=== PATIENT | male | born 1960 | race Caucasian/White ===

== ENCOUNTER → 2017-09-18 | Outpatient (CLI) | payer MEDICARE ==
[2017-09-18 11:19] LABS: Blood Urea Nitrogen 14 mg/dL (9-20)
--- NOTE | 2017-09-18 15:23 | NM ---
EXAMINATION TYPE: NM bone scan whole body DATE OF EXAM: 09/18/2017 COMPARISON: CT pelvis same date HISTORY: Follow-up staging prostate cancer, C 61 Delayed whole-body scanning was performed following the injection of 25.4 mCi Tc 99m MDP. Images acq uired 3 hours post injection. FINDINGS: There is some increased uptake at the costovertebral angles of approximately T8 bilaterally which may be due to costovertebral angle osteoarthritic changes bilaterally. Uptake within the knees, feet, carvalho nds, shoulders, sternoclavicular joints is likely degenerative. Uptake in the maxillary and mandibula r level likely due to periodontal disease. Soft tissue uptake is normal. IMPRESSION: No convincing evidence of metastatic disease. Probable degenerative changes as described.
--- NOTE | 2017-09-18 15:35 | CT ---
EXAMINATION TYPE: CT pelvis w con DATE OF EXAM: 09/18/2017 COMPARISON: NONE INDICATION: Prostate CA staging DLP: 1873.60 mGycm, Automated exposure control for dose reduction was used. CONTRAST: 100 mL of Omnipaque 300. Study performed with Oral Contrast TECHNIQUE: Axial images were obtained from above the diaphragm to the pubic rami in the axial plane a t 5 mm thick sections. Reconstructed images are reviewed on the computer in the coronal plane. FINDINGS: Note is made of a 0.4 cm nonobstructing renal stone at the inferior pole of the left kidney on the coronal plane images. An additional nonobstructing renal stone within the right kidney midpor tion measuring 0.[address] PELVIS: No suspicious lower abdominal or intrapelvic adenopathy is evident. Contrast-filled loops of bowel appear unremarkable. There are some loops of bowel with incomplete dis tention. There is thickening of the sigmoid colon. This could be related to incomplete distention. So me increased mesenteric stranding is present superior to the mid sigmoid colon, series 7 image 24. So me mild diverticulitis is not excluded. Consider additional evaluation and clinical correlation. Appendix: Not identified Urinary bladder: Contrast filled urinary bladder with urine contrast level is evident. Genitourinary structures: Prostate has slight prominence. Seminal vesicles appear normal. Urinary cheo dder adjacent appears normal Osseous structures: No suspicious lytic or sclerotic lesions. Degenerative disc changes are present L 5-S1. Mild sacroiliac joint degenerative changes are present. IMPRESSIONS: 1. No suspicious changes to suggest metastatic prostate disease. 2. Nonobstructing bilateral renal stones 3. Mild diverticulitis may be present within the sigmoid colon region. Conical correlation and Follow -up is recommended. Underlying mass cannot be excluded. This could be related to incomplete distentio n and wall thickening.
== END | disposition home or self-care (01) ==
LOC: RADNMMAIN 10:34 → EEVIPCON 11:30
PROVIDERS: ATTEND Urology
DX: C61 Malignant neoplasm of prostate (principal)
CPT/HCPCS: 82565; 84520; 72193; 36415; 78306; A9503; Q9967

== ENCOUNTER → 2017-10-21 | Outpatient (CLI) | payer MEDICARE ==
[2017-10-21 10:53] LABS: Basophils # (A) 0.1 k/uL (0-0.2); Basophils % (A) 1 %; Eosinophils # (A) 0.3 k/uL (0-0.7); Eosinophils % (A) 6 %; HCT 46.8 % (39.0-53.0); HGB 15.7 gm/dL (13.0-17.5); Lymphocytes # (A) 1.7 k/uL (1.0-4.8); Lymphocytes % (A) 30 %; MCH 30.1 pg (25.0-35.0); MCHC 33.6 g/dL (31.0-37.0); MCV 89.6 fL (80.0-100.0); Mean Platelet Volume 7.3; Monocytes # (A) 0.4 k/uL (0-1.0); Monocytes % (A) 7 %; Neutrophils # (A) 2.9 k/uL (1.3-7.7); Neutrophils % (A) 53 %; Platelet Count 205 k/uL (150-450); RBC 5.22 m/uL (4.30-5.90); RDW 12.6 % (11.5-15.5); WBC 5.5 k/uL (3.8-10.6)
[2017-10-21 11:10] LABS: Anion Gap 10 mmol/L; Blood Urea Nitrogen 14 mg/dL (9-20); Carbon Dioxide 28 mmol/L (22-30); Chloride 103 mmol/L (98-107); Glucose 73 mg/dL (74-99); Sodium 141 mmol/L (137-145)
== END | disposition home or self-care (01) ==
LOC: LABPAT 10:11
PROVIDERS: ATTEND Urology
DX: Z01.818 Encounter for other preprocedural examination (principal); I10 Essential (primary) hypertension; R94.31 Abnormal electrocardiogram [ECG] [EKG]; E03.9 Hypothyroidism, unspecified; C61 Malignant neoplasm of prostate; Z01.812 Encounter for preprocedural laboratory examination
CPT/HCPCS: 80048; 85025; 86850; 86900; 86901; 93005

== ENCOUNTER 2017-10-28 11:01 | Inpatient (IN) | payer MEDICARE ==
[2017-10-19 13:19] VITALS: BMI 34.7
[~2017-10-28 11:01] MED LIST: DEXAMETHASONE SOD PHOSPHATE 10 MG/ML 1 ML VIAL IV ONE; HEPARIN SODIUM,PORCINE 5,000 UNIT/ML 1 ML VIAL SQ ONE; MORPHINE SULFATE 4 MG/ML SYRINGE IV PRN; ONDANSETRON 4 MG/2 ML VIAL IVP ONE
[2017-10-28] MEDS: LACTATED RINGERS 1,000 ML IV SCH (12:26)
[2017-10-28] MEDS ORDERED: LIDOCAINE 1% 20 ML VIAL (10MG/ML) FOR IV START INTRADERMA ONE (12:30)
[2017-10-28] MEDS ORDERED: LIDOCAINE 1% INJ 10MG/ML (20 ML MDV) ONE (12:41)
[2017-10-28] MEDS: ceFAZolin IN SWFI 2 GM/20 ML SYRINGE IVP ONE ×2 (12:41→13:32)
[2017-10-28] MEDS ORDERED: NEOSTIGMINE 1 MG/ML 10 ML VIAL ONE (12:41)
[2017-10-28] MEDS ORDERED: fentaNYL (PF) 50 MCG/ML 2 ML AMP ONE (12:41)
[2017-10-28] MEDS ORDERED: VECURONIUM 10 MG VIAL IV ONE (12:41)
[2017-10-28] MEDS ORDERED: GLYCOPYRROLATE 0.2 MG/ML 2 ML VIAL ONE (12:41)
[2017-10-28] MEDS ORDERED: PROPOFOL 10 MG/ML 20 ML VIAL IV ONE (12:41)
[2017-10-28] MEDS ORDERED: SUCCINYLCHOLINE CHLORIDE VIAL 200 MG/10 ML VIAL IV ONE (12:41)
[2017-10-28] MEDS ORDERED: BUPIVACAINE (PF) 0.25% 30 ML VIAL SQ ONE ×2 (13:31)
[2017-10-28] MEDS ORDERED: LACTATED RINGERS 1,000 ML IV ONE (16:13)
--- NOTE | 2017-10-28 17:13 | P.OP ---
Date of Procedure: 10/28/17 Preoperative Diagnosis: Adenocarcinoma of the Prostate, Clinical Stage [id number] Postoperative Diagnosis: Same Procedure(s) Performed: Robotic-assisted Laparoscopic Prostatectomy (RALP) with Bilateral Pelvic Lymphadenectomy Anesthesia: RONNELL Surgeon: Ravinder Lee Online Marketing Director #1: Sandip Burroughs Estimated Blood Loss (ml): 500 IV fluids (ml): 1,750 Condition: stable Disposition: PACU Indications for Procedure: The patient is a 56-year-old male with a recent PSA level of 8.098, up from 1.75 in 2015. ERIN revealed left-sided firmness, and biopsies have shown adenocarcinoma in 5 of 12 biopsies ([id number]). The Mellissa score was 8-9 in 4 of these biopsies. In view of this, he underwent a CT scan and bone scan which showed no metastases. This was discussed with the patient and his , though communication is difficult. He was thus given a book (Murphy Vazquez's Guide to Surviving Prostate Cancer) for educational purposes. He has elected to undergo an RALP with PLND. The left neurovascular bundle will be widely excised , and he understands the likelihood of postoperative erectile dysfunction. He also understands the possible need for adjuvant therapy. Operative Findings: Inflammation surrounding the sigmoid colon, suggestive of diverticulitis. No evidence of extraprostatic disease. Description of Procedure: The patient was taken in the operating room and placed in the dorsal lithotomy position, with his legs supported in Pérez stirrups. He was carefully positioned on a beanbag for stability. The abdomen and external genitalia were prepped and draped sterilely. A Herbert catheter was inserted. The Veress needle was passed through the anterior abdominal wall immediately cephalad to the umbilicus, and insufflation was performed to a pressure of 20 mm Hg. Once insufflation was performed, the Veress needle was removed and a supraumbilical incision was made, through which a 12 mm camera port was placed. Under camera guidance, 3 8 mm robotic ports were placed, 2 on the left and one on the right. An additional 12 mm port was placed on the right lateral side for use as an legal executive assistant port. A 5 mm port was placed to the right of the camera port for suction. The patient was placed in Trendelenburg position, and docking was then performed to the da Ana system utilizing a 4-arm approach. The abdomen was examined. The sigmoid colon was mobilized out of the pelvis. This required extensive dissection, as there was significant inflammation surrounding the sigmoid colon. The peritoneum was incised lateral to the medial umbilical ligaments bilaterally, exposing the pubis. The peritoneum was then incised across the midline, allowing the bladder flap to be taken down. The endopelvic fascia was opened bilaterally, and muscular attachments from the urogenital diaphragm were swept away from the prostate. Bilateral pelvic lymphadenectomies were performed in the standard fashion. The peritoneal incisions were extended in a cephalad direction, and the vas deferens were divided bilaterally. Margins of dissection were the bifurcation of the iliac vessels proximally, the circumflex iliac vein distally, the external iliac artery laterally, and the obturator nerve medially. A combination of sharp and blunt dissection was used. Care was taken to avoid any neurovascular injury, and the use of monopolar electrocautery was avoided immediately adjacent to neurovascular structures. The lymphatic package was clipped distally. No enlarged lymph nodes were encountered. There were no complications. The vesical neck was incised transversely, down to the lumen. The Herbert catheter was brought out through the anterior vesical neck incision and was used for traction. The posterior aspect of the vesical neck was incised, such that the full-thickness of the vesical neck was divided. The anterior layer of the Denonvilliers fascia was incised, exposing the vas deferens. Each were isolated and divided. Next, each of the seminal vesicles were dissected away from adjacent tissues, and vascular attachments were cauterized and divided. The posterior leaf of Denonvilliers fascia was incised transversely, allowing entry into the plane between the prostate and rectum. With lateral spreading, this plane was developed down to the apex. This exposed the lateral vascular pedicles bilaterally. These were clipped and divided in an antegrade fashion, down to the apex. The use of electrocautery was avoided on the right to prevent thermal damage to the nerves. On the right side, the plane of dissection was close to the prostate for partial sparing of the neurovascular bundle. On the left side, wide excision of the vascular pedicle was performed. The remaining apical attachments were swept away from the prostate. The dorsal venous complex was incised, as well as periurethral tissue. Significant bleeding occurred from the dorsal venous complex, and this was sutured using a V lock suture in a running fashion. At this point, only the urethra remained intact. This was transected immediately distal to the prostatic apex using cold scissors. The specimen was placed within a specimen bag. A V-Loc suture was then used to place the Woody stitch, incorporating the rhabdosphincter and the edge of Denonvilliers fascia. This allowed the bladder to be taken down to the urethra, leaving the vesical neck immediately adjacent to the urethra. The vesicourethral anastomosis was then performed using a V- Loc suture in a running fashion. After completing the anastomosis, an 18- Chinese Herbert catheter was placed and approximately 150 mL of 0.9 normal saline were instilled into the bladder. No extravasation of irrigant from the vesicourethral anastomosis was noted. A small amount of oozing was noted from the vascular pedicles, so Surgicel was placed bilaterally. The patient was returned to the supine position. Undocking was performed, and the specimen bag sutures were passed through the camera port. After removing all the ports and allowing all of the CO2 to be released from the peritoneal cavity, the camera port incision was enlarged to allow removal of the surgical specimen. The fascia of this incision was then closed using 0 Vicryl suture in an interrupted [id number] fashion. Each of the skin incisions were then closed using 4-0 Monocryl suture in a subcuticular fashion. Marcaine was injected at each of the incision sites. Dermabond was applied to each incision. The Herbert catheter was connected to gravity drainage. All sponge and needle counts were correct. The patient tolerated the procedure well was taken to the recovery room in stable condition.
[2017-10-28] MEDS ORDERED: KETOROLAC 30 MG/ML 1 ML VIAL IVP PRN (17:14)
[2017-10-28] MEDS ORDERED: ACETAMINOPHEN TAB 325 MG TAB PO PRN (17:14)
[2017-10-28] MEDS ORDERED: ONDANSETRON 4 MG/2 ML VIAL IVP PRN (17:14)
[2017-10-28] MEDS: DEXTROSE 5%-0.45% NACL 1,000 ML IV SCH (18:28)
[2017-10-28] MEDS: HEPARIN SODIUM,PORCINE 5,000 UNIT/ML 1 ML VIAL SQ SCH (19:54)
[2017-10-28] MEDS: sulfaSALAzine 500 MG TAB PO SCH (19:58)
[2017-10-28] MEDS: MORPHINE SULFATE/PF 10MG/10ML VL IVP PRN (19:58)
[2017-10-29] MEDS: DEXTROSE 5%-0.45% NACL 1,000 ML IV SCH ×3 (06:04→17:21)
[2017-10-29] MEDS ORDERED: LEVOTHYROXINE 75 MCG TAB PO SCH (06:30)
[2017-10-29] MEDS: MORPHINE SULFATE/PF 10MG/10ML VL IVP PRN (08:01)
[2017-10-29] MEDS: sulfaSALAzine 500 MG TAB PO SCH (09:47)
[2017-10-29] MEDS: HEPARIN SODIUM,PORCINE 5,000 UNIT/ML 1 ML VIAL SQ SCH (09:47)
[2017-10-29] MEDS ORDERED: HYDROmorphone 4 MG TABLET PO PRN (11:16)
[2017-10-29 14:41] VITALS: BP 133/63; PULSE 100; RESP 20; TEMP 98.3
[2017-10-29] MEDS ORDERED: HYDROcodone/APAP 5-325MG 1 EACH TAB PO STA (17:14)
--- NOTE | 2017-10-29 18:50 | P.DS ---
Providers Date of admission: 10/28/17 11:01 Expected date of discharge: 10/29/17 Attending physician: Ravinder Lee Primary care physician: Stated None Hospital Course: On the day of admission, the patient underwent a robotic-assisted laparoscopic prostatectomy (RALP) with bilateral pelvic lymphadenectomy. The procedure was made more difficult by scarring/inflammation surrounding the sigmoid colon. Blood loss was somewhat higher than anticipated, but there were no intraoperative complications. The perioperative course was unremarkable. On the first postoperative day, the patient was able to tolerate diet and ambulating well in the arellano. The incisions were clean and dry. He was afebrile with stable vital signs. The Herbert catheter drained clear yellow urine. He was thus discharged home with the Herbert catheter. Procedures: RALP with bilateral pelvic lymphadenectomy on 10/28/2017. Patient Condition at Discharge: Good Plan - Discharge Summary Discharge Rx Participant: Yes New Discharge Prescriptions: New Ciprofloxacin HCl [Cipro] 250 mg PO Q12HR #6 tablet Hydrocodone/Acetaminophen [[place] 5-325] 1 - 2 each PO Q4HR PRN #20 tab PRN Reason: Pain No Action Vitamin E (Dl,Tocopheryl Acet) [Vitamin E] 400 unit PO DAILY Multivitamins, Thera [Multivitamin (formulary)] 1 tab PO DAILY Vit C/E/Zn/Coppr/Lutein/Zeaxan [Preservision Ared[place] 2 Softgel] 1 cap PO DAILY [place]-3 Fatty Acids [[place]-3] 1,000 mg PO DAILY Ginkgo Biloba [place] Extract [Ginkgo Biloba] 30 mg PO DAILY Cyanocobalamin (Vitamin B-12) [Vitamin B-12] 1,000 mcg PO DAILY Cholecalciferol (Vitamin D3) [Vitamin D3] 2,000 unit PO DAILY Aspirin [Adult Low Dose Aspirin EC] 81 mg PO DAILY Levothyroxine Sodium [Synthroid] 75 mcg PO DAILY sulfaSALAzine [Azulfidine] 1,000 mg PO BID Discharge Medication List Aspirin [Adult Low Dose Aspirin EC] 81 mg PO DAILY 10/19/17 [History] Cholecalciferol (Vitamin D3) [Vitamin D3] 2,000 unit PO DAILY 10/19/17 [History] Cyanocobalamin (Vitamin B-12) [Vitamin B-12] 1,000 mcg PO DAILY 10/19/17 [ History] Ginkgo Biloba [place] Extract [Ginkgo Biloba] 30 mg PO DAILY 10/19/17 [History] Multivitamins, Thera [Multivitamin (formulary)] 1 tab PO DAILY 10/19/17 [History ] [place]-3 Fatty Acids [[place]-3] 1,000 mg PO DAILY 10/19/17 [History] Vit C/E/Zn/Coppr/Lutein/Zeaxan [Preservision [place]red[place] 2 Softgel] 1 cap PO DAILY [History] Vitamin E (Dl,Tocopheryl Acet) [Vitamin E] 400 unit PO DAILY 10/19/17 [History] Levothyroxine Sodium [Synthroid] 75 mcg PO DAILY 10/28/17 [History] sulfaSALAzine [Azulfidine] 1,000 mg PO BID 10/28/17 [History] Ciprofloxacin HCl [Cipro] 250 mg PO Q12HR #6 tablet 10/29/17 [Rx] Hydrocodone/Acetaminophen [[place] 5-325] 1 - 2 each PO Q4HR PRN #20 tab 10/29/17 [Rx] Follow up Appointment(s)/Referral(s): Ravinder Lee MD [STAFF PHYSICIAN] - 1 Week (please call office on Thursday morning. Office is closed) Patient Instructions/Handouts: Robot Assisted Laparoscopic Prostatectomy (DC) Activity/Diet/Wound Care/Special Instructions: Diet as tolerated. Okay to shower. No lifting, driving, or strenuous activity. The patient will be contacted by my office to arrange follow-up. Hold aspirin for 7 days. Begin taking ciprofloxacin one day prior to follow-up appointment. Discharge Disposition: HOME SELF-CARE
== END 2017-10-29 18:48 | disposition home or self-care (01) | DRG 707 ==
LOC: 2ORMAIN 11:01 → 3SUR 17:23
PROVIDERS: ADMIT Urology; ATTEND Urology
DX: C61 Malignant neoplasm of prostate (principal); K51.90 Ulcerative colitis, unspecified, without complications; K57.32 Diverticulitis of large intestine without perforation or abscess without bleeding; E78.00 Pure hypercholesterolemia, unspecified; E03.9 Hypothyroidism, unspecified; H91.3 Deaf nonspeaking, not elsewhere classified; I10 Essential (primary) hypertension; M10.9 Gout, unspecified; M19.91 Primary osteoarthritis, unspecified site; Z79.82 Long term (current) use of aspirin; Z79.890 Hormone replacement therapy; Z79.899 Other long term (current) drug therapy; Z87.442 Personal history of urinary calculi; Z91.018 Allergy to other foods; Z80.42 Family history of malignant neoplasm of prostate; Z82.49 Family history of ischemic heart disease and other diseases of the circulatory system
CPT/HCPCS: 86850; 86900; 86901; 88307; 88309

== ENCOUNTER → 2017-12-03 | Outpatient (CLI) | payer MEDICARE | LOC: LABWHC1 14:03 | PROVIDERS: ATTEND Urology | DX: C61 Malignant neoplasm of prostate (principal) | CPT/HCPCS: 36415; 84153 ==

== ENCOUNTER 2017-12-09 14:58 | Emergency (ER) | payer MEDICARE ==
[2017-12-09] MEDS ORDERED: ONDANSETRON 4 MG/2 ML VIAL IVP STA (15:25)
[2017-12-09] MEDS ORDERED: SODIUM CHLORIDE 0.9% 1,000 ML IV STA (15:25)
[2017-12-09] MEDS ORDERED: MORPHINE SULFATE 4 MG/ML SYRINGE IVP STA (15:26)
--- NOTE | 2017-12-09 15:38 | ED ---
General Adult HPI - General Chief complaint: Nausea/Vomiting/Diarrhea Stated complaint: poss food poisoning Time Seen by Provider: 12/09/17 15:18 Source: patient, RN notes reviewed Mode of arrival: wheelchair Limitations: language barrier - History of Present Illness Initial comments: Patient is a 57-year-old male who is deaf presented to the emergency room with chief complaint of left flank pain starting earlier today. Doesn't that he's had bouts of nausea vomiting. Admits that he had a recent prostate surgery November [address] Mccloud. States that symptoms started to the left flank. Patient does admit to a history kidney stones. Patient denies any other complaints or symptoms. Patient denies any recent fever, chills, shortness of breath, chest pain, back pain, numbness or tingling, headaches or visual changes , or any other complaints. - Related Data Home Medications Medication Instructions Recorded Confirmed Aspirin [Adult Low Dose Aspirin EC] 81 mg PO DAILY 10/19/17 12/09/17 Cholecalciferol (Vitamin D3) 2,000 unit PO DAILY 10/19/17 12/09/17 [Vitamin D3] Cyanocobalamin (Vitamin B-12) 1,000 mcg PO DAILY 10/19/17 12/09/17 [Vitamin B-12] Ginkgo Biloba [place] Extract [Ginkgo 30 mg PO DAILY 10/19/17 12/09/17 Biloba] Multivitamins, Thera [Multivitamin 1 tab PO DAILY 10/19/17 12/09/17 (formulary)] [place]-3 Fatty Acids [Oketo-3] 1,000 mg PO DAILY 10/19/17 12/09/17 Vit C/E/Zn/Coppr/Lutein/Zeaxan 1 cap PO DAILY 10/19/17 12/09/17 [Preservision Areds 2 Softgel] Vitamin E (Dl,Tocopheryl Acet) 400 unit PO DAILY 10/19/17 12/09/17 [Vitamin E] Levothyroxine Sodium [Synthroid] 75 mcg PO DAILY 10/28/17 12/09/17 sulfaSALAzine [Azulfidine] 1,000 mg PO BID 10/28/17 12/09/17 Previous Rx's Medication Instructions Recorded Ciprofloxacin HCl [Cipro] 500 mg PO Q12HR #20 day 12/09/17 Hydrocodone/Acetaminophen [[place] 1 each PO Q6HR PRN #12 tab 12/09/17 5-325] Ondansetron Odt [Zofran ODT] 4 mg PO Q8HR PRN #20 tab 12/09/17 Phenazopyridine [Pyridium] 100 mg PO TID #10 day 12/09/17 metroNIDAZOLE [Flagyl] 500 mg PO TID #21 tab 12/09/17 Allergies Allergy/AdvReac Type Severity Reaction Status Date / Time carrot Allergy Unknown Verified 12/09/17 15:16 Review of Systems ROS Statement: Those systems with pertinent positive or pertinent negative responses have been documented in the HPI. ROS Other: All systems not noted in ROS Statement are negative. Past Medical History Past Medical History: Thyroid Disorder Additional Past Medical History / Comment(s): DEAF- NEEDS MANAGER STARS., ULCERATIVE COLITIS., "TUMOR ON PROSTATE"., STATES OCCASIONAL DIZZINESS ON STANDING. History of Any Multi-Drug Resistant Organisms: None Reported Additional Past Surgical History / Comment(s): SURGERY ON PINKY FINGER Past Anesthesia/Blood Transfusion Reactions: No Reported Reaction Past Psychological History: No Psychological Hx Reported Smoking Status: Never smoker Past Alcohol Use History: None Reported Past Drug Use History: None Reported - Past Family History Mother Family Medical History: No Reported History General Exam - General Exam Comments Initial Comments: General: The patient is awake and alert, in no distress, and does not appear acutely ill. Eye: Pupils are equal, round and reactive to light, extra-ocular movements are intact. No nystagmus. There is normal conjunctiva bilaterally. No signs of icterus. Ears, nose, mouth and throat: There are moist mucous membranes and no oral lesions. Neck: The neck is supple, there is no tenderness or JVD. Cardiovascular: There is a regular rate and rhythm. No murmur, rub or gallop is appreciated. Respiratory: Lungs are clear to auscultation, respirations are non-labored, breath sounds are equal. No wheezes, stridor, rales, or rhonchi. Gastrointestinal: Soft, non-distended, non-tender abdomen without masses or organomegaly noted. There is no rebound or guarding present. No CVA tenderness. Musculoskeletal: Normal ROM, no tenderness. Strength 5/5. Sensation intact. Pulses equal bilaterally 2+. Neurological: A&O x 3. CN II-XII intact, There are no obvious motor or sensory deficits. Coordination appears grossly intact. Speech is normal. Skin: Skin is warm and dry and no rashes or lesions are noted. Psychiatric: Cooperative, appropriate mood & affect, normal judgment. Limitations: language barrier Course Vital Signs 12/09/17 12/09/17 15:02 18:02 Temperature 98 F 99.4 F Pulse Rate 90 98 Respiratory 18 20 Rate Blood Pressure 138/71 120/62 O2 Sat by Pulse 96 94 L Oximetry Medical Decision Making - Medical Decision Making Case discussed in detail with attending physician Dr. Estevez. Patient reexamined at this time shows no signs of distress resting comfortably. Patient resting coverlet this time. His CT of the abdomen and pelvis does show a 6 mm stone on the left UVJ. Patient's CT does show evidence for diverticulitis of the sigmoid colon. Patient given doses of Levaquin and Flagyl here in the emergency room. Patient is doing well at this time. Options were discussed with patient about admission versus discharge. Patient states he would like to try to be discharged and try outpatient therapy. Patient given pain medication of [place], along with Zofran for nausea. Also be continued on antibiotics of Flagyl and ciprofloxacin at home. He is advised close follow-up with the urologist tomorrow in family doctor. Advised return if symptoms increase or worsen. - Lab Data Result diagrams: 12/09/17 15:55 12/09/17 15:55 Lab Results 12/09/17 12/09/17 12/09/17 Range/Units 15:55 15:55 16:52 WBC 9.6 (3.8-10.6) k/uL RBC 4.84 (4.30-5.90) m/uL Hgb 14.2 (13.0-17.5) gm/dL Hct 43.1 (39.0-53.0) % MCV 89.0 (80.0-100.0) fL MCH 29.3 (25.0-35.0) pg MCHC 32.9 (31.0-37.0) g/dL RDW 13.0 (11.5-15.5) % Plt Count 212 (150-450) k/uL Neutrophils % 79 % Lymphocytes % 11 % Monocytes % 4 % Eosinophils % 5 % Basophils % 1 % Neutrophils # 7.6 (1.3-7.7) k/uL Lymphocytes # 1.0 (1.0-4.8) k/uL Monocytes # 0.4 (0-1.0) k/uL Eosinophils # 0.5 (0-0.7) k/uL Basophils # 0.0 (0-0.2) k/uL Sodium 145 (137-145) mmol/L Potassium 4.1 (3.5-5.1) mmol/L Chloride 105 (98-107) mmol/L Carbon Dioxide 25 (22-30) mmol/L Anion Gap 15 mmol/L BUN 19 (9-20) mg/dL Creatinine 1.34 H (0.66-1.25) mg/dL Est GFR (CKD-EPI)AfAm 67 (>60 ml/min/1.73 sqM) Est GFR (CKD-EPI)NonAf 58 (>60 ml/min/1.73 sqM) Glucose 112 H (74-99) mg/dL Calcium 9.5 (8.4-10.2) mg/dL Total Bilirubin 0.4 (0.2-1.3) mg/dL AST 29 (17-59) U/L ALT 35 (21-72) U/L Alkaline Phosphatase 84 (38-126) U/L Total Protein 6.7 (6.3-8.2) g/dL Albumin 4.5 (3.5-5.0) g/dL Amylase 49 (30-110) U/L Lipase 45 (23-300) U/L Urine Color Yellow Urine Appearance Clear (Clear) Urine pH 5.5 (5.0-8.0) Ur Specific [place] 1.020 (1.001-1.035) Urine Protein Trace H (Negative) Urine Glucose (UA) Negative (Negative) Urine Ketones 1+ H (Negative) Urine Blood Large H (Negative) Urine Nitrite Negative (Negative) Urine Bilirubin Negative (Negative) Urine Urobilinogen <2.0 (<2.0) mg/dL Ur Leukocyte Esterase Trace H (Negative) Urine RBC 83 H (0-5) /hpf Urine WBC 10 H (0-5) /hpf Urine Mucus Rare H (None) /hpf Disposition Clinical Impression: Kidney stone, Diverticulitis Disposition: HOME SELF-CARE Condition: Good Instructions: Kidney Stones (ED), Diverticulitis (ED) Additional Instructions: Please use medications that have been sent to your pharmacist at [facility]. Please follow-up with family physician and neurologist tomorrow as discussed. Please continue antibiotics of ciprofloxacin and Flagyl. Please use pain medication of [place] for pain as needed every 6 hours. Please use Pyridium for kidney stone once daily. Please use Zofran for nausea as needed. Please return to emergency room for any fever or increase worsen symptoms. Prescriptions: Ciprofloxacin HCl [Cipro] 500 mg PO Q12HR #20 day Hydrocodone/Acetaminophen [[place] 5-325] 1 each PO Q6HR PRN #12 tab PRN Reason: Pain metroNIDAZOLE [Flagyl] 500 mg PO TID #21 tab Ondansetron Odt [Zofran ODT] 4 mg PO Q8HR PRN #20 tab PRN Reason: Nausea Phenazopyridine [Pyridium] 100 mg PO TID #10 day Is patient prescribed a controlled substance at d/c from ED?: No Referrals: Alfonzo Leal MD [Primary Care Provider] - 1-2 days Ravinder Lee MD [STAFF PHYSICIAN] - 1-2 days Time of Disposition: 18:30
[2017-12-09 16:00] LABS: Basophils % (A) 1 %; Eosinophils # (A) 0.5 k/uL (0-0.7); Eosinophils % (A) 5 %; HCT 43.1 % (39.0-53.0); HGB 14.2 gm/dL (13.0-17.5); Lymphocytes % (A) 11 %; MCH 29.3 pg (25.0-35.0); MCHC 32.9 g/dL (31.0-37.0); Monocytes # (A) 0.4 k/uL (0-1.0); Monocytes % (A) 4 %; Neutrophils # (A) 7.6 k/uL (1.3-7.7); Neutrophils % (A) 79 %; Platelet Count 212 k/uL (150-450); RBC 4.84 m/uL (4.30-5.90); WBC 9.6 k/uL (3.8-10.6)
[2017-12-09 16:11] LABS: Albumin 4.5 g/dL (3.5-5.0); Calcium 9.5 mg/dL (8.4-10.2); Potassium 4.1 mmol/L (3.5-5.1); Total Bilirubin 0.4 mg/dL (0.2-1.3); Total Protein 6.7 g/dL (6.3-8.2)
--- NOTE | 2017-12-09 16:18 | XR ---
EXAMINATION TYPE: XR KUB DATE OF EXAM: 12/09/2017 4:13 PM CLINICAL HISTORY: Left flank pain with nausea and vomiting. TECHNIQUE: Two Upright KUB images of the abdomen are obtained. COMPARISON: None. FINDINGS: Exam is suboptimal secondary to patient's large body habitus. Air-fluid level is seen in sl ightly prominent stomach. There is some paucity of small bowel gas. Gas and fecal material is seen a slightly prominent right-sided colonic loops. No pneumoperitoneum is present. Lung bases are clear. Mild to moderate joint space loss in both hips is present. Epigastric calcifications are likely vascular. IMPRESSION: Overall nonspecific bowel gas pattern.
[2017-12-09] MEDS ORDERED: RX INFO: IV CONTRAST WAS GIVEN 1 EACH MISC MISCELLANE PRN (16:40)
[2017-12-09 17:07] LABS: Appearance,Urine Clear (Clear); Bilirubin,Urine Negative (Negative); Blood,Urine Large (Negative); Color,Urine Yellow; Glucose,Urine (UA) Negative (Negative); Ketones,Urine 1+ (Negative); Leukocyte Esterase,Urine Trace (Negative); Mucus,Urine Rare /hpf; Nitrite,Urine Negative (Negative); PH, Urine 5.5 (5.0-8.0); Protein,Urine Trace (Negative); RBC,Urine 83 /hpf (0-5); Urobilinogen,Urine <2.0 mg/dL (<2.0); WBC,Urine 10 /hpf (0-5)
--- NOTE | 2017-12-09 17:29 | CT ---
EXAMINATION TYPE: CT abdomen pelvis wo/w con DATE OF EXAM: 12/09/2017 COMPARISON: NONE HISTORY: Left side flank pain and vomiting CT DLP: 3247 mGycm Automated exposure control for dose reduction was used. TECHNIQUE: Helical acquisition of images was performed from the lung bases through the pelvis. CONTRAST: Performed without Oral Contrast and without and with IV Contrast, patient injected with 80ml mL of Is ovue M300. FINDINGS: Lung bases are clear of consolidation. There is no pleural effusion. Heart size is normal. The noncon trast images show a 5 mm calculus in the interpolar right kidney. There is mild left-sided hydronephr osis. There is a 6 mm calculus at the left ureteropelvic junction. There is minimal left perinephric edema. There is no retroperitoneal adenopathy. The liver spleen pancreas gallbladder appear normal. Bile ducts are not dilated. There is no adrenal mass. There is slight decreased cortical opacification of the left kidney compared to the right. Ther e is a delayed left nephrogram. There is no ascites. There are numerous diverticula in the sigmoid colon. There is minimal stranding around the proximal sigmoid colon. The appendix appears normal. There is no sign of a bowel obstructi on. Bladder is almost empty. There is no free fluid in the pelvis. There is narrowing at L5-S1 disc s pace with vacuum disc. I see no bony destructive process. Abdominal aorta is atheromatous. There is n o evidence of aneurysm. There is subcutaneous density near the umbilicus consistent with previous corby chidi. IMPRESSION: RIGHT RENAL CALCULUS. OBSTRUCTING SMALL RENAL CALCULUS AT THE LEFT URETEROPELVIC JUNCTION WITH MILD L EFT-SIDED HYDRONEPHROSIS. MODERATE SIGMOID DIVERTICULOSIS WITH SOME FAT STRANDING CONSISTENT WITH SOME DEGREE OF DIVERTICULITIS . NO ABSCESS. THE INFLAMMATORY CHANGES ARE NEW COMPARED TO THE PELVIS CT SCAN OF 09/18/2017.
[2017-12-09] MEDS ORDERED: KETOROLAC 30 MG/ML 1 ML VIAL IVP STA (17:35)
[2017-12-09] MEDS ORDERED: LEVOFLOXACIN 500MG-D5W PMX 500 MG in DEXTROSE/WATER 1 100ML.BAG IVPB STA (17:35)
[2017-12-09] MEDS ORDERED: metroNIDAZOLE-NS PMX 500 MG in SALINE 1 100ML.BAG IVPB STA (17:35)
[2017-12-09 18:03] VITALS: RESP 20
[2017-12-09 20:28] VITALS: BP 112/53; PULSE 103; TEMP 98.3
== END 2017-12-09 20:26 | disposition home or self-care (01) ==
LOC: EC 14:58
DX: K57.32 Diverticulitis of large intestine without perforation or abscess without bleeding (principal); N20.0 Calculus of kidney; E07.9 Disorder of thyroid, unspecified; H91.90 Unspecified hearing loss, unspecified ear; K51.90 Ulcerative colitis, unspecified, without complications; Z79.82 Long term (current) use of aspirin; Z79.899 Other long term (current) drug therapy; Z91.018 Allergy to other foods; Z98.890 Other specified postprocedural states
CPT/HCPCS: 36415; 80053; 82150; 83690; 85025; 81001; 87086; 74018; 74178; 99284; 96365; 96368; 96375 ×3; 96361; J2270; J2405; J1956; J1885; Q9967

== ENCOUNTER → 2018-01-11 | Outpatient (CLI) | payer MEDICARE ==
--- NOTE | 2018-01-11 11:39 | XR ---
EXAMINATION TYPE: XR KUB DATE OF EXAM: 01/11/2018 COMPARISON: 12/09/2017 HISTORY: Left renal calculus TECHNIQUE: One view abdominal series FINDINGS: The osseous structures are intact. The bowel gas pattern is nonspecific. Retained fecal debris seen throughout the colon. Right kidney: There is a 3 mm calcification in the region of the right renal pelvis stable from prior exam. Left kidney: Overlying fecal debris limits assessment but no definite suspicious calcifications. Perry maxx, within the left hemipelvis there is a 3 to 4 mm calcification above the ischial spine images for ureteral calcification not seen with certainty on the exam of 12/09/2017. Additional tiny calcificatio ns more peripherally and within the left hemipelvis are likely vascular. IMPRESSION: 1. Stable right renal calculus. Measures 3 mm. 2. Calcification within the left hemipelvis measuring 3 to 4 mm above the ischial spine was not seen on the previous abdominal KUB appears to correspond to the proximal UPJ calcification seen on the pre vious exam with now distal migration. It measures a 3-4 centimeters above the level of the UVJ expect ed location.
== END | disposition home or self-care (01) ==
LOC: RADXRMAIN 11:10
PROVIDERS: ATTEND Urology
DX: N20.0 Calculus of kidney (principal); R19.09 Other intra-abdominal and pelvic swelling, mass and lump
CPT/HCPCS: 74018

== ENCOUNTER → 2018-02-23 | Outpatient (CLI) | payer MEDICARE ==
--- NOTE | 2018-02-23 10:13 | XR ---
EXAMINATION TYPE: XR abdomen 1V DATE OF EXAM: 02/23/2018 COMPARISON: 01/11/2018 HISTORY: Left ureteral calculus TECHNIQUE: One view abdominal series FINDINGS: The osseous structures are intact. The bowel gas pattern is nonspecific. Hypertrophic and degenerati ve change of the spine noted. Right kidney: There is a stable appearing mid to upper pole right renal calculus measuring approximat john 4.3 mm. Additional punctate 2 mm calculus lower pole right kidney suspected. Left kidney: There are no suspicious calcifications overlying the left kidney. However, there is a st able appearing calcification within the left hemipelvis measuring 4 mm above the ischial spine. Arthropathy of the hips noted. Bone island involving the left ileum noted. Additional calcifications within the pelvis appear vascular. IMPRESSION: 1. Stable left hemipelvic calcification measuring 4 mm unchanged in position or size. 2. Stable right-sided renal calculi.
--- NOTE | 2018-02-23 15:24 | US ---
EXAMINATION TYPE: US kidneys/renal and bladder DATE OF EXAM: 02/23/2018 COMPARISON: CT 12/09/2017 CLINICAL HISTORY: R93.4. History of hydronephrosis EXAM MEASUREMENTS: Right Kidney: 11.2 x 5.8 x 5.4 cm Left Kidney: 11.6 x 6.5 x 6.4 cm Right Kidney: No hydronephrosis. Hyperechoic area visualized mid pole measuring 1.0 x 1.1 x 0.8 cm, p ossible angiomyolipoma vs other Left Kidney: Small amount of hydronephrosis visualized. Bladder: wnl as visualized, not fully distended Bilateral Jets seen: No, bladder not fully distended IMPRESSION: 1. Mild left-sided hydronephrosis. This is likely secondary to the known 4 mm calculus at the distal ureter. 2. No right-sided hydronephrosis. 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
== END | disposition home or self-care (01) ==
LOC: RADUSWWP 08:33
PROVIDERS: ATTEND Urology
DX: N13.30 Unspecified hydronephrosis (principal); N20.0 Calculus of kidney; N28.9 Disorder of kidney and ureter, unspecified; C61 Malignant neoplasm of prostate
CPT/HCPCS: 36415; 74018; 76770; 84153

== ENCOUNTER → 2018-03-23 | Outpatient (CLI) | payer MEDICARE ==
--- NOTE | 2018-03-23 13:10 | XR ---
EXAMINATION TYPE: XR KUB DATE OF EXAM: 03/23/2018 COMPARISON: 02/23/2018 HISTORY: Calculus of the ureter TECHNIQUE: One view abdominal series FINDINGS: The osseous structures are intact. The bowel gas pattern is nonspecific. Right kidney: There is a punctate 1 mm calcification overlying the right renal outline. Left kidney: No suspicious calcification seen. Pelvis: There is a 2 mm calcification along the inferior lateral rim of the pelvic sidewall likely re lated to phleboliths. There is a 4 mm calcification which appears to migrated distally by approximate ly 2 to 3 cm and likely lies at the level the UVJ or bladder. IMPRESSION: 1. Nonspecific abdomen. 2. The calculus previously seen in the mid pelvis appears to have migrated distally approximately 2 t o 3 cm and likely is at the level of the left UVJ or bladder.
== END | disposition home or self-care (01) ==
LOC: RADXRMAIN 11:19
PROVIDERS: ATTEND Urology
DX: N20.1 Calculus of ureter (principal)
CPT/HCPCS: 74018

== ENCOUNTER → 2018-05-27 | Outpatient (CLI) | payer MEDICARE ==
--- NOTE | 2018-05-27 12:05 | US ---
EXAMINATION TYPE: US kidneys/renal and bladder DATE OF EXAM: 05/27/2018 COMPARISON: CT & US CLINICAL HISTORY: N20.1 Calculus of ureter. H/O renal calculus and left side hydro EXAM MEASUREMENTS: Right Kidney: 11.1 x 5.8 x 6.3 cm Left Kidney: 11.7 x 6.0 x 5.8 cm Right Kidney: Hyperechoic lesion visualized= 0.8 x 0.9 x 0.9 cm seen on previous again compatible wit h a benign angiomyolipoma, Possible renal calculus mid pole= 0.9 cm Left Kidney: Appeared wnl . Resolution of the previously seen hydronephrosis. Bladder: wnl Bilateral Jets seen: No There is no evidence for hydronephrosis at this point in time. No nephrolithiasis is seen. No patt s are identified. The urinary bladder is anechoic. Bilateral ureteral jets are seen. IMPRESSION: 1. Resolution the previously seen left-sided hydronephrosis. 2. 9 mm probable nonobstructing midpole renal calculus. 3. 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
== END | disposition home or self-care (01) ==
LOC: RADUSWWP 11:10
PROVIDERS: ATTEND Urology
DX: N20.1 Calculus of ureter (principal); R93.41 Abnormal radiologic findings on diagnostic imaging of renal pelvis, ureter, or bladder
CPT/HCPCS: 76770

== ENCOUNTER → 2018-08-18 | Outpatient (CLI) | payer MEDICARE | LOC: LABWHC1 13:31 | PROVIDERS: ATTEND Urology | DX: C61 Malignant neoplasm of prostate (principal) | CPT/HCPCS: 36415; 84153 ==

== ENCOUNTER → 2018-08-25 | Outpatient (CLI) | payer MEDICARE | END | disposition home or self-care (01) | LOC: LABWHC1 10:01 | PROVIDERS: ATTEND Urology | DX: C61 Malignant neoplasm of prostate (principal) | CPT/HCPCS: 36415; 84153 ==

== ENCOUNTER → 2018-10-01 | Outpatient (CLI) | payer MEDICARE | LOC: LABWHC1 13:58 | PROVIDERS: ATTEND Urology | DX: C61 Malignant neoplasm of prostate (principal); R97.21 Rising PSA following treatment for malignant neoplasm of prostate | CPT/HCPCS: 36415; 84153 ==

== ENCOUNTER → 2018-11-04 | Outpatient (CLI) | payer MEDICARE ==
--- NOTE | 2018-11-04 16:29 | XR ---
Lumbosacral spine HISTORY: Follow-up staging prostate carcinoma 5 views of lumbosacral spine Sclerotic density is present at the L1 vertebral body involving the right pedicle. Lumbar vertebral b odies show multilevel spondylosis. There is loss of disc height and intervertebral levels especially L5-S1 where there is vacuum phenomenon. Vascular calcifications are noted incidentally. Sclerotic den sity in the posterior elements is compatible with facet arthropathy. There is normal alignment. No sp ondylolysis evident. 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 Degenerative disc disease and facet arthropathy.
== END | disposition home or self-care (01) ==
LOC: RADXRMAIN 12:33
PROVIDERS: ATTEND Urology
DX: C61 Malignant neoplasm of prostate (principal); M46.96 Unspecified inflammatory spondylopathy, lumbar region; M51.36 Other intervertebral disc degeneration, lumbar region
CPT/HCPCS: 72110

== ENCOUNTER → 2019-01-20 | Outpatient (CLI) | payer MEDICARE ==
--- NOTE | 2019-01-20 09:38 | XR ---
EXAMINATION TYPE: XR chest 2V DATE OF EXAM: 01/20/2019 COMPARISON: None HISTORY: 58-year-old male cough for 3 weeks TECHNIQUE: Frontal and lateral views FINDINGS: The cardiomediastinal silhouette, aorta, and pulmonary vasculature are within normal limits. Mild str akin atelectasis in the lower lungs. Otherwise, lungs and pleural spaces are clear. IMPRESSION: No acute cardiopulmonary process.
--- NOTE | 2019-01-20 09:40 | XR ---
EXAMINATION TYPE: XR sinus DATE OF EXAM: 01/20/2019 COMPARISON: NONE HISTORY: 58-year-old male cough for 3 weeks, sinus drainage. TECHNIQUE: 4 views FINDINGS: Orbits appear symmetrical. Nasal septum is midline. No layering fluid in the maxillary sinuses on the Hayes' view. The paranasal sinuses appear relatively pneumatized radiographically. IMPRESSION: No abnormal opacification of the paranasal sinuses is radiographically apparent.
== END | disposition home or self-care (01) ==
LOC: RADXRMAIN 08:54
PROVIDERS: ATTEND Internal Medicine
DX: I06.9 Rheumatic aortic valve disease, unspecified (principal)
CPT/HCPCS: 70220; 71046

== ENCOUNTER → 2019-02-07 | Outpatient (CLI) | payer MEDICARE | END | disposition home or self-care (01) | LOC: LABWHC1 10:55 | PROVIDERS: ATTEND Radiology Radiation Oncology | DX: C79.51 Secondary malignant neoplasm of bone (principal); R97.21 Rising PSA following treatment for malignant neoplasm of prostate; C61 Malignant neoplasm of prostate | CPT/HCPCS: 36415; 84153 ==

== ENCOUNTER → 2019-05-09 | Outpatient (CLI) | payer MEDICARE | END | disposition home or self-care (01) | LOC: LABWHC1 13:10 | PROVIDERS: ATTEND Urology | DX: C79.51 Secondary malignant neoplasm of bone (principal); C61 Malignant neoplasm of prostate; R97.21 Rising PSA following treatment for malignant neoplasm of prostate | CPT/HCPCS: 36415; 84153; 84403 ==

== ENCOUNTER → 2019-08-05 | Outpatient (CLI) | payer MEDICARE ==
--- NOTE | 2019-08-05 12:36 | XR ---
EXAMINATION TYPE: XR KUB DATE OF EXAM: 08/05/2019 COMPARISON: NONE HISTORY: Pain TECHNIQUE: One view abdominal series FINDINGS: The osseous structures are intact. The bowel gas pattern is nonspecific. Assessment of the renal out lines is limited due to overlying bowel content. No definite suspicious calcifications arthropathy of the hips. IMPRESSION: 1. Nonspecific abdomen.
== END | disposition home or self-care (01) ==
LOC: RADXRMAIN 12:21
PROVIDERS: ATTEND Urology
DX: N20.0 Calculus of kidney (principal)
CPT/HCPCS: 74018

== ENCOUNTER → 2019-11-29 | Outpatient (CLI) | payer MEDICARE | END | disposition home or self-care (01) | LOC: LABWHC1 11:44 | PROVIDERS: ATTEND Radiology Radiation Oncology | DX: C61 Malignant neoplasm of prostate (principal); C79.51 Secondary malignant neoplasm of bone; R97.21 Rising PSA following treatment for malignant neoplasm of prostate | CPT/HCPCS: 36415; 84153 ==

== ENCOUNTER 2019-12-25 18:06 | Observation (INO) | payer MEDICARE ==
[2019-12-25] MEDS ORDERED: ASPIRIN 81 MG PO STA (19:04)
[2019-12-25] MEDS ORDERED: SODIUM CHLORIDE 0.9% 500 ML 500 ML IV STA (19:04)
[2019-12-25 19:28] LABS: Basophils # (A) 0.1 k/uL (0-0.2); Basophils % (A) 1 %; Eosinophils # (A) 0.3 k/uL (0-0.7); Eosinophils % (A) 5 %; HCT 38.2 % (39.0-53.0); HGB 12.7 gm/dL (13.0-17.5); Lymphocytes # (A) 1.3 k/uL (1.0-4.8); Lymphocytes % (A) 24 %; MCH 30.5 pg (25.0-35.0); MCHC 33.1 g/dL (31.0-37.0); MCV 92.1 fL (80.0-100.0); Mean Platelet Volume 8.3; Monocytes # (A) 0.4 k/uL (0-1.0); Monocytes % (A) 7 %; Neutrophils # (A) 3.2 k/uL (1.3-7.7); Neutrophils % (A) 61 %; Platelet Count 183 k/uL (150-450); RBC 4.15 m/uL (4.30-5.90); RDW 12.9 % (11.5-15.5); WBC 5.2 k/uL (3.8-10.6)
[2019-12-25 19:37] LABS: ALT 13 U/L (4-49); AST 21 U/L (17-59); African American GFR (CKD) >90 (>60 ml/min/1.73 sqM); Albumin 4.2 g/dL (3.5-5.0); Alkaline Phosphatase 65 U/L (38-126); Amylase 51 U/L (30-110); Anion Gap 8 mmol/L; Blood Urea Nitrogen 14 mg/dL (9-20); Calcium 9.3 mg/dL (8.4-10.2); Carbon Dioxide 26 mmol/L (22-30); Chloride 104 mmol/L (98-107); Glucose 95 mg/dL (74-99); Non-African American GFR(CKD) >90 (>60 ml/min/1.73 sqM); Potassium 3.9 mmol/L (3.5-5.1); Sodium 138 mmol/L (137-145); Total Bilirubin 0.2 mg/dL (0.2-1.3); Total Protein 6.7 g/dL (6.3-8.2)
[2019-12-25 19:44] LABS: D-Dimer <0.17 mg/L FEU (<0.60); Partial Thromboplastin Time 27.3 sec (22.0-30.0); Prothrombin Time 10.5 sec (9.0-12.0)
--- NOTE | 2019-12-25 20:05 | XR ---
EXAMINATION TYPE: XR chest 1V portable DATE OF EXAM: 12/25/2019 COMPARISON: Prior chest 01/20/2019 HISTORY: Chest pain TECHNIQUE: Single frontal view of the chest is obtained. FINDINGS: There is no focal air space opacity, pleural effusion, or pneumothorax seen. The cardiac silhouette size is within normal limits. The osseous structures are intact. IMPRESSION: No acute process.
--- NOTE | 2019-12-25 20:35 | ED ---
General Adult HPI - General Chief complaint: Chest Pain Stated complaint: Abd pain, headache Time Seen by Provider: 12/25/19 18:45 Source: patient, RN notes reviewed Mode of arrival: ambulatory Limitations: language barrier - History of Present Illness Initial comments: 59-year-old male with a past medical history of deafness, ulcerative colitis, prostate cancer presents to the emergency department for chest pain. Patient states he has had chest pain for the past day. States this started this morning when he woke up. Patient states it is a 2 out of 3. States it is in the center of his chest. Patient denies alleviating or aggravating factors. He describes it as a sharp pain. Denies any pleuritic symptoms or shortness of breath. Patient also states he is a mild sore throat. He is concerned he could have Covid. He does not have any cardiac history. He does have a history of prostate cancer but states he did chemo and radiation in the past and his PSA has been normal. Although the triage note said patient had abdominal pain he actually denies this to me and has a completely nontender abdomen. Patient has no other complaints at this time including shortness of breath, abdominal pain, nausea or vomiting, headache, or visual changes. - Related Data Home Medications Medication Instructions Recorded Confirmed Aspirin [Adult Low Dose Aspirin EC] 81 mg PO DAILY 10/19/17 12/09/17 Cholecalciferol (Vitamin D3) 2,000 unit PO DAILY 10/19/17 12/09/17 [Vitamin D3] Cyanocobalamin (Vitamin B-12) 1,000 mcg PO DAILY 10/19/17 12/09/17 [Vitamin B-12] Ginkgo Biloba [place] Extract [Ginkgo 30 mg PO DAILY 10/19/17 12/09/17 Biloba] Multivitamins, Thera [Multivitamin 1 tab PO DAILY 10/19/17 12/09/17 (formulary)] [place]-3 Fatty Acids [[place]-3] 1,000 mg PO DAILY 10/19/17 12/09/17 Vit C/E/Zn/Coppr/Lutein/Zeaxan 1 cap PO DAILY 10/19/17 12/09/17 [Preservision Areds 2 Softgel] Vitamin E (Dl,Tocopheryl Acet) 400 unit PO DAILY 10/19/17 12/09/17 [Vitamin E] Levothyroxine Sodium [Synthroid] 75 mcg PO DAILY 10/28/17 12/09/17 sulfaSALAzine [Azulfidine] 1,000 mg PO BID 10/28/17 12/09/17 Previous Rx's Medication Instructions Recorded Ciprofloxacin HCl [Cipro] 500 mg PO Q12HR #20 day 12/09/17 Hydrocodone/Acetaminophen [[place] 1 each PO Q6HR PRN #12 tab 12/09/17 5-325] Ondansetron Odt [Zofran ODT] 4 mg PO Q8HR PRN #20 tab 12/09/17 Phenazopyridine [Pyridium] 100 mg PO TID #10 day 12/09/17 metroNIDAZOLE [Flagyl] 500 mg PO TID #21 tab 12/09/17 Allergies Allergy/AdvReac Type Severity Reaction Status Date / Time carrot Allergy Unknown Verified 12/25/19 18:33 Review of Systems ROS Statement: Those systems with pertinent positive or pertinent negative responses have been documented in the HPI. ROS Other: All systems not noted in ROS Statement are negative. 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 History of Any Multi-Drug Resistant Organisms: None Reported Additional Past Surgical History / Comment(s): SURGERY ON PINKY FINGER Past Anesthesia/Blood Transfusion Reactions: No Reported Reaction Past Psychological History: No Psychological Hx Reported Smoking Status: Never smoker Past Alcohol Use History: None Reported Past Drug Use History: None Reported - Past Family History Mother Family Medical History: No Reported History General Exam Limitations: language barrier General appearance: alert, in no apparent distress Head exam: Present: atraumatic, normocephalic, normal inspection Eye exam: Present: normal appearance, PERRL, EOMI. Absent: scleral icterus, conjunctival injection, periorbital swelling ENT exam: Present: normal exam, normal oropharynx, mucous membranes moist, TM's normal bilaterally, normal external ear exam Neck exam: Present: normal inspection, full ROM. Absent: tenderness, meningismus, lymphadenopathy Respiratory exam: Present: normal lung sounds bilaterally. Absent: respiratory distress, wheezes, rales, rhonchi, stridor Cardiovascular Exam: Present: regular rate, normal rhythm, normal heart sounds. Absent: systolic murmur, diastolic murmur, rubs, gallop, clicks GI/Abdominal exam: Present: soft, normal bowel sounds. Absent: distended, tenderness, guarding, rebound, rigid Neurological exam: Present: alert Course Vital Signs 12/25/19 18:29 Temperature 98.9 F Pulse Rate 77 Respiratory 18 Rate Blood Pressure 133/67 O2 Sat by Pulse 98 Oximetry EKG Findings - EKG Comments: EKG Findings:: Normal sinus rhythm, ventricular rate 93, ID int [id number], QTC 425 Medical Decision Making - Medical Decision Making Vitals are stable. Semiconductor Technician was used as patient is deaf. HPI physical exam is documented. CBC is unremarkable. CMP unremarkable. Troponin negative. D- dimer less than 0.17. Soriano virus pending. Chest pain has improved however he has not had any cardiac evaluation since the stress test 20 years ago. Therefore he will be admitted for cardiology consultation and trending troponin. - Lab Data Result diagrams: 12/25/19 19:18 12/25/19 19:18 Lab Results 12/25/19 12/25/19 12/25/19 Range/Units 19:18 19:18 19:18 WBC 5.2 (3.8-10.6) k/uL RBC 4.15 L (4.30-5.90) m/uL Hgb 12.7 L (13.0-17.5) gm/dL Hct 38.2 L (39.0-53.0) % MCV 92.1 (80.0-100.0) fL MCH 30.5 (25.0-35.0) pg MCHC 33.1 (31.0-37.0) g/dL RDW 12.9 (11.5-15.5) % Plt Count 183 (150-450) k/uL Neutrophils % 61 % Lymphocytes % 24 % Monocytes % 7 % Eosinophils % 5 % Basophils % 1 % Neutrophils # 3.2 (1.3-7.7) k/uL Lymphocytes # 1.3 (1.0-4.8) k/uL Monocytes # 0.4 (0-1.0) k/uL Eosinophils # 0.3 (0-0.7) k/uL Basophils # 0.1 (0-0.2) k/uL PT 10.5 (9.0-12.0) sec INR 1.0 (<1.2) APTT 27.3 (22.0-30.0) sec D-Dimer <0.17 (<0.60) mg/L FEU Sodium 138 (137-145) mmol/L Potassium 3.9 (3.5-5.1) mmol/L Chloride 104 (98-107) mmol/L Carbon Dioxide 26 (22-30) mmol/L Anion Gap 8 mmol/L BUN 14 (9-20) mg/dL Creatinine 0.82 (0.66-1.25) mg/dL Est GFR (CKD-EPI)AfAm >90 (>60 ml/min/1.73 sqM) Est GFR (CKD-EPI)NonAf >90 (>60 ml/min/1.73 sqM) Glucose 95 (74-99) mg/dL Calcium 9.3 (8.4-10.2) mg/dL Magnesium 2.0 (1.6-2.3) mg/dL Total Bilirubin 0.2 (0.2-1.3) mg/dL AST 21 (17-59) U/L ALT 13 (4-49) U/L Alkaline Phosphatase 65 (38-126) U/L Troponin I (0.000-0.034) ng/mL NT-Pro-B Natriuret Pep pg/mL Total Protein 6.7 (6.3-8.2) g/dL Albumin 4.2 (3.5-5.0) g/dL Amylase 51 (30-110) U/L Lipase 52 (23-300) U/L 12/25/19 12/25/19 Range/Units 19:18 19:18 WBC (3.8-10.6) k/uL RBC (4.30-5.90) m/uL Hgb (13.0-17.5) gm/dL Hct (39.0-53.0) % MCV (80.0-100.0) fL MCH (25.0-35.0) pg MCHC (31.0-37.0) g/dL RDW (11.5-15.5) % Plt Count (150-450) k/uL Neutrophils % % Lymphocytes % % Monocytes % % Eosinophils % % Basophils % % Neutrophils # (1.3-7.7) k/uL Lymphocytes # (1.0-4.8) k/uL Monocytes # (0-1.0) k/uL Eosinophils # (0-0.7) k/uL Basophils # (0-0.2) k/uL PT (9.0-12.0) sec INR (<1.2) APTT (22.0-30.0) sec D-Dimer (<0.60) mg/L FEU Sodium (137-145) mmol/L Potassium (3.5-5.1) mmol/L Chloride (98-107) mmol/L Carbon Dioxide (22-30) mmol/L Anion Gap mmol/L BUN (9-20) mg/dL Creatinine (0.66-1.25) mg/dL Est GFR (CKD-EPI)AfAm (>60 ml/min/1.73 sqM) Est GFR (CKD-EPI)NonAf (>60 ml/min/1.73 sqM) Glucose (74-99) mg/dL Calcium (8.4-10.2) mg/dL Magnesium (1.6-2.3) mg/dL Total Bilirubin (0.2-1.3) mg/dL AST (17-59) U/L ALT (4-49) U/L Alkaline Phosphatase (38-126) U/L Troponin I <0.012 (0.000-0.034) ng/mL NT-Pro-B Natriuret Pep 109 pg/mL Total Protein (6.3-8.2) g/dL Albumin (3.5-5.0) g/dL Amylase (30-110) U/L Lipase (23-300) U/L Disposition Clinical Impression: Chest pain Disposition: ADMITTED IP TO THIS HOSP Condition: Good Is patient prescribed a controlled substance at d/c from ED?: No Referrals: Alfonzo Leal MD [Primary Care Provider] - 1-2 days Time of Disposition: 20:59
[2019-12-25] MEDS ORDERED: NITROGLYCERIN SL TABS 0.4 MG TAB SUBLINGUAL PRN (21:10)
[2019-12-25 21:12] VITALS: RESP 16
--- NOTE | 2019-12-26 01:55 | P.HPIM ---
History of Present Illness H&P Date: 12/25/19 Chief Complaint: chest pain 59 year old male with ulcerative colitis , prostate cancer , deafness. 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 pain is of low intensity vague achy pain retrosternal non radiating , 3-4/10 in severity , associated with some sweating, no dizziness, no lightheadedness, no SOB, no numbness or tingling in his arms. pain not associated with food or activity. patient noticed that pain persisted all day, but would forget about it with distraction however, it stayed there. he grew suspicious and was worried that this could be a COVID 19 symptom and decided to come to the hospital to get evaluated. denies any travel or sick contact. he has been maintaining social distancing and good hygiene practice. however, patient is reporting sore throat no coughing, no fever, no other URI symptoms he reports positive family histroy of CAD. and had a screening stress test 20 years ago which was negative. he denies smoking, alcohol , or diabetes. in the ED , vital signs, blood work were within normal limits. EKG showed LBBB, no acute ST changes Review of Systems Pertinent positives as noted in HPI. All other systems were reviewed and are negative Constitutional: Denies chills, Denies fever Eyes: denies blurred vision, denies pain Ears, nose, mouth and throat: Denies headache, Denies sore throat Cardiovascular: Denies chest pain, Denies shortness of breath Respiratory: Denies cough Gastrointestinal: Denies abdominal pain, Denies diarrhea, Denies nausea, Denies vomiting Musculoskeletal: Denies myalgias Integumentary: Denies pruritus, Denies rash Neurological: Denies numbness, Denies weakness Psychiatric: Denies anxiety, Denies depression Endocrine: Denies fatigue, Denies weight change Past Medical History Past Medical History: Thyroid Disorder Additional Past Medical History / Comment(s): 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 History of Any Multi-Drug Resistant Organisms: None Reported Additional Past Surgical History / Comment(s): SURGERY ON PINKY FINGER Past Anesthesia/Blood Transfusion Reactions: No Reported Reaction Past Psychological History: No Psychological Hx Reported Smoking Status: Never smoker Past Alcohol Use History: None Reported Past Drug Use History: None Reported - Past Family History Mother Family Medical History: No Reported History Medications and Allergies Home Medications Medication Instructions Recorded Confirmed Type Aspirin [Adult Low Dose Aspirin EC] 81 mg PO DAILY 10/19/17 12/25/19 History Levothyroxine Sodium [Synthroid] 75 mcg PO DAILY 10/28/17 12/25/19 History sulfaSALAzine [Azulfidine] 1,000 mg PO DIRECTED 10/28/17 12/25/19 History Bicalutamide 50 mg PO DAILY@1200 12/25/19 12/25/19 History Allergies Allergy/AdvReac Type Severity Reaction Status Date / Time carrot Allergy Unknown Verified 12/25/19 21:57 Physical Exam Vitals: Vital Signs Temp Pulse Resp BP Pulse Ox 12/25/19 22:00 98.6 F 74 16 136/74 98 12/25/19 21:00 98.7 F 74 16 131/71 97 12/25/19 18:29 98.9 F 77 18 133/67 98 Intake and Output 12/25/19 12/25/19 12/25/19 06:59 14:59 22:59 Other: Weight 124.738 kg Constitutional: No acute distress, conversant, pleasant Eyes: Anicteric sclerae, moist conjunctiva, no lid-lag Pupils equal round reactive to light ENMT: NC/AT Oropharynx clear, no erythema, exudates Neck: Supple, FROM, no masses, or JVD No carotid bruits No thyromegaly Lungs: Clear to auscultation Clear to percussion Normal respiratory effort, no accessory muscle use Cardiovascular: Heart regular in rate and rhythm, No murmurs, gallops, or rubs No peripheral edema Abdominal: Soft Nontender, no guarding, rebound or rigidity Abdomen moving with respiration Normoactive bowel sounds No hepatomegaly, No splenomegaly No palpable mass No abdominal wall hernia noted Skin: Normal temperature, tone, texture, turgor No induration No subcutaneous nodules No rash, lesions No ulcers Extremities: No digital cyanosis No clubbing Pedal pulses intact and symmetrical Radial pulses intact and symmetrical No calf tenderness Psychiatric: Alert and oriented to person, place and time Appropriate affect fair judgement Neuro Muscles Strength 5/5 in all 4 extremities Sensation to light touch grossly present throughout Cranial nerves II-XII grossly intact No focal sensory deficits Lymphatics: no palpable cervical or supraclavicular , or inguinal lymph nodes Results CBC & Chem 7: 12/25/19 19:18 12/25/19 19:18 Labs: Abnormal Lab Results - Last 24 Hours (Table) 12/25/19 Range/Units 19:18 RBC 4.15 L (4.30-5.90) m/uL Hgb 12.7 L (13.0-17.5) gm/dL Hct 38.2 L (39.0-53.0) % Assessment and Plan Assessment: 59 year old male with UC, deafness, and prostate cancer. he comes in today for chest pain , admitted for further workup and monitoring to rule out ACS. chest pain rule out ACS trend trops cardiac monitoring pain control cardio consult chronic conditions ulcerative colitis hypothyroid prostate cancer continue home meds follow up COVID 19 testing results CODE STATUS:full code DVT prophylaxis: heparin sc tid Discussed with: Patient, ER, RN Anticipated length of stay < than [address]: home A total of 70 minutes was spent on the care of this complex patient more than 50% of the time was spent in counseling and care coordination.
[2019-12-26] MEDS ORDERED: LEVOTHYROXINE 75 MCG TAB PO SCH (06:30)
[2019-12-26 06:57] LABS: Cholesterol 239 mg/dL (<200); HDL Cholesterol 34 mg/dL (40-60); LDL Cholesterol,Calculated 162 mg/dL (0-99); Triglycerides 215 mg/dL (<150)
[2019-12-26] MEDS ORDERED: HEPARIN SODIUM,PORCINE 5,000 UNIT/ML 1 ML VIAL SQ SCH (08:00)
[2019-12-26] MEDS ORDERED: BICALUTAMIDE 50 MG TAB PO SCH (12:00)
--- NOTE | 2019-12-26 12:54 | P.CRDCN ---
History of Present Illness History of present illness: Bebeto Yung This is Dr. Obregon dictating a consult on this patient The patient was interviewed and examined by me IMPRESSION / ASSESSMENT: Atypical chest discomfort Minus sore throat Coronavirus PCR nonreactive Left bundle branch block pattern twelve-lead ECG Patient stable no evidence for myocardial infarction D-dimer normal PLAN: Patient was to go home today. He appears stable chronic enzymes are normal Outpatient follow Dr. Obregon and cardiac evaluation thereafter HPI Patient presented with chest discomfort when he woke up yesterday morning He has 3 normal troponins Underlying left bundle branch block pattern on 12-lead ECG Normal d-dimer The Covid test is negative Patient had a funny sensation in the chest yesterday after taking a hormone shot. He did not feel right. He is deaf and he can't really explain himself It waxed and waned for a while no provocative factors No sore throat today ROS: He complained of chest discomfort and he complained of sore throat No fever chills or rigors, no cough, phlegm or expectoration, no nausea, vomiting or diarrhea, no hematuria, dysuria, no musculoskeletal complaints, no strokes or seizures, no skin lesions. 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 History of Any Multi-Drug Resistant Organisms: None Reported Past Surgical History: Prostate Surgery Additional Past Surgical History / Comment(s): SURGERY ON PINKY FINGER Past Anesthesia/Blood Transfusion Reactions: No Reported Reaction Past Psychological History: No Psychological Hx Reported Smoking Status: Never smoker Past Alcohol Use History: None Reported Past Drug Use History: None Reported - Past Family History Mother Family Medical History: No Reported History Medications and Allergies Home Medications Medication Instructions Recorded Confirmed Type Aspirin [Adult Low Dose Aspirin EC] 81 mg PO DAILY 10/19/17 12/25/19 History Levothyroxine Sodium [Synthroid] 75 mcg PO DAILY 10/28/17 12/25/19 History sulfaSALAzine [Azulfidine] 1,000 mg PO DIRECTED 10/28/17 12/25/19 History Bicalutamide 50 mg PO DAILY@1200 12/25/19 12/25/19 History Allergies Allergy/AdvReac Type Severity Reaction Status Date / Time carrot Allergy Unknown Verified 12/25/19 21:57 Physical Exam Vitals: Vital Signs Temp Pulse Pulse Resp BP BP Pulse Ox 12/26/19 08:50 98.6 F 61 16 136/75 98 12/26/19 04:50 66 16 137/80 98 12/25/19 22:23 98.1 F 70 16 143/66 97 12/25/19 22:00 98.6 F 74 16 136/74 98 12/25/19 21:00 98.7 F 74 16 131/71 97 12/25/19 18:29 98.9 F 77 18 133/67 98 Intake and Output 12/25/19 12/26/19 12/26/19 22:59 06:59 14:59 Intake Total 10 Balance 10 Intake: IV 10 Invasive Line 1 10 Other: Weight 126.5 kg 126.5 kg Results 12/25/19 19:18 12/25/19 19:18 Cardiac Enzymes 12/25/19 12/25/19 12/26/19 Range/Units 19:18 19:18 01:14 AST 21 (17-59) U/L Troponin I <0.012 <0.012 (0.000-0.034) ng/mL 12/26/19 Range/Units 06:20 AST (17-59) U/L Troponin I <0.012 (0.000-0.034) ng/mL Coagulation 12/25/19 Range/Units 19:18 PT 10.5 (9.0-12.0) sec APTT 27.3 (22.0-30.0) sec Lipids 12/26/19 Range/Units 06:20 Triglycerides 215 H (<150) mg/dL Cholesterol 239 H (<200) mg/dL HDL Cholesterol 34 L (40-60) mg/dL CBC 12/25/19 Range/Units 19:18 WBC 5.2 (3.8-10.6) k/uL RBC 4.15 L (4.30-5.90) m/uL Hgb 12.7 L (13.0-17.5) gm/dL Hct 38.2 L (39.0-53.0) % Plt Count 183 (150-450) k/uL Comprehensive Metabolic Panel 12/25/19 Range/Units 19:18 Sodium 138 (137-145) mmol/L Potassium 3.9 (3.5-5.1) mmol/L Chloride 104 (98-107) mmol/L Carbon Dioxide 26 (22-30) mmol/L BUN 14 (9-20) mg/dL Creatinine 0.82 (0.66-1.25) mg/dL Glucose 95 (74-99) mg/dL Calcium 9.3 (8.4-10.2) mg/dL AST 21 (17-59) U/L ALT 13 (4-49) U/L Alkaline Phosphatase 65 (38-126) U/L Total Protein 6.7 (6.3-8.2) g/dL Albumin 4.2 (3.5-5.0) g/dL Current Medications Generic Name Dose Route Start Last Admin Trade Name Freq PRN Reason Stop Dose Admin Bicalutamide 50 mg 12/26/19 12:00 Casodex PO DAILY@1200 [facility] Heparin Sodium (Porcine) 5,000 unit 12/26/19 08:00 12/26/19 08:53 Heparin SQ 5,000 unit Q8HR ALFONSO Administration Levothyroxine Sodium 75 mcg 12/26/19 06:30 12/26/19 06:18 Synthroid PO 75 mcg DAILY@0630 [facility] Administration Nitroglycerin 0.4 mg 12/25/19 21:10 Nitrostat SUBLINGUAL Q5M PRN Chest Pain Intake and Output 12/25/19 12/26/19 12/26/19 22:59 06:59 14:59 Intake Total 10 Balance 10 Intake: IV 10 Invasive Line 1 10 Other: Weight 126.5 kg 126.5 kg 12/25/19 19:18 12/25/19 19:18
[2019-12-26 13:31] VITALS: BP 142/74; PULSE 69; TEMP 97.6
--- NOTE | 2019-12-26 14:07 | P.DS ---
Providers Date of admission: 12/25/19 21:11 Expected date of discharge: 12/26/19 Attending physician: Tyson Henry MD Consults: 12/25/19 21:10 Consult Physician Routine Consulting Provider: [facility] Consult Reason/Comments: CP Do you want consulting provider notified?: Yes Primary care physician: [facility] Hospital Course: Discharge Diagnosis: Atypical chest pain Left bundle branch block Metastatic prostate cancer with metastases to bone Hypothyroidism Ulcerative colitis Hospital Course: Patient is a 59-year-old male with ulcerative colitis, prostate cancer on hormone injections, and congenital deafness who presented to the emergency department after waking up with chest pain. His initial chest pain was very low in intensity at a 3-4 out of 10 and was a vague aching. He was worried about this being a cold in 19 symptom and therefore decided to present to the ER. On arrival to the emergency department his vital signs were within normal limits. Laboratory analysis showed a slight anemia with hemoglobin of 12.7. There are otherwise unremarkable. EKG was noted to have possible left bundle branch block. Initial troponin was negative. He is given a dose of aspirin and admitted as chest pain observation. His troponins remained negative. He had no episodes of recurrent chest pain during his hospital stay and felt back to baseline. On the morning after admission he felt that the chest pain is likely related to anxiety. He underwent cholesterol testing which showed a mildly elevated LDL at 162 and a mildly elevated total cholesterol at 239. We discussed this and he wishes to try dietary changes and follow-up with his primary care physician. I informed him that this is an acceptable plan. He was seen by cardiology and cleared for discharge with outpatient follow-up for stress test. Patient seen and examined at bedside. No chest pain, shortness breath, nausea, or vomiting. Sore throat was called. Vital signs reviewed and stable. General: [non toxic], [no distress], [appears at stated age] Derm: [warm], [dry] Head: [atraumatic], [normocephalic], [symmetric], deaf and seen with use of interperter Eyes: [EOMI], [no lid lag], [anicteric sclera] Mouth: [no lip lesion], [mucus membranes moist] Cardiovascular: [S1S2 reg], [no murmur], [positive posterior tibial pulse bilateral], no pain to palpation of chest wall Lungs: [CTA bilateral], [no rhonchi, no rales] , [no accessory muscle use] Abdominal: [soft], [ nontender to palpation], [no guarding], [no appreciable organomegaly] Psych: [Alert], [oriented], [appropriate affect] A total of 35 minutes of time were spent preparing this complex discharge summary . Patient Condition at Discharge: Good Plan - Discharge Summary New Discharge Prescriptions: Continue Aspirin [Adult Low Dose Aspirin EC] 81 mg PO DAILY Levothyroxine Sodium [Synthroid] 75 mcg PO DAILY sulfaSALAzine [Azulfidine] 1,000 mg PO DIRECTED Bicalutamide 50 mg PO DAILY@1200 Discharge Medication List Aspirin [Adult Low Dose Aspirin EC] 81 mg PO DAILY 10/19/17 [History] Levothyroxine Sodium [Synthroid] 75 mcg PO DAILY 10/28/17 [History] sulfaSALAzine [Azulfidine] 1,000 mg PO DIRECTED 10/28/17 [History] Bicalutamide 50 mg PO DAILY@1200 12/25/19 [History] Follow up Appointment(s)/Referral(s): Dez Obregon MD [STAFF PHYSICIAN] - 2 Weeks (Follow Dr. Obregon within 1-2 weeks) Alfonzo Leal MD [Primary Care Provider] - 1-2 days Activity/Diet/Wound Care/Special Instructions: Activity: as tolerated Diet: low cholesterol Special Instructions: Return if recurrent chest pain Discharge Disposition: HOME SELF-CARE
== END 2019-12-26 14:53 | disposition home or self-care (01) ==
LOC: EC 18:06 → 3SCARD 21:11
PROVIDERS: ADMIT Internal Medicine; ATTEND Internal Medicine
DX: R07.89 Other chest pain (principal); R10.9 Unspecified abdominal pain; R51 Headache; C79.51 Secondary malignant neoplasm of bone; E03.9 Hypothyroidism, unspecified; F41.9 Anxiety disorder, unspecified; H90.5 Unspecified sensorineural hearing loss; I25.10 Atherosclerotic heart disease of native coronary artery without angina pectoris; I44.7 Left bundle-branch block, unspecified; K51.90 Ulcerative colitis, unspecified, without complications; Z79.82 Long term (current) use of aspirin; Z79.890 Hormone replacement therapy; Z85.46 Personal history of malignant neoplasm of prostate; Z92.21 Personal history of antineoplastic chemotherapy; Z92.3 Personal history of irradiation; Z03.818 Encounter for observation for suspected exposure to other biological agents ruled out
CPT/HCPCS: 96372; 93005 ×2; 96360; 96361; 99285; 36415; 85379; 83880; 80061; 80053; 82150; 83690; 83735; 84484 ×2; 85025; 85610; 85730; 87635; 71045; G0378 ×2; J1644

== ENCOUNTER → 2022-02-21 | Outpatient (CLI) | payer MEDICARE ==
--- NOTE | 2022-02-21 15:38 | NM ---
EXAMINATION TYPE: NM bone scan whole body DATE OF EXAM: 02/21/2022 COMPARISON: NONE HISTORY: Prostate carcinoma Delayed whole-body scanning was performed following the injection of 24.7 mCi Tc 99m MDP. Images acq uired 3 hours post injection. FINDINGS: There is a focus of uptake in the proximal right humerus the metadiaphyseal level. Soft tissue uptake is normal. Uptake within the feet, ankles, knees, shoulders, sternoclavicular joints is likely degen erative. Uptake in the maxilla and mandible may be due to periodontal disease. Question some mild upt adriana involving the T12 or L1 vertebral body. IMPRESSION: Findings suspicious for metastatic disease. Consider dedicated imaging of the proximal right humerus, lumbar MRI
== END | disposition home or self-care (01) ==
LOC: RADNMMAIN 10:24
PROVIDERS: ATTEND Urology
DX: C61 Malignant neoplasm of prostate (principal)
CPT/HCPCS: 78306; A9503

== ENCOUNTER → 2022-02-28 | Outpatient (CLI) | payer MEDICARE ==
--- NOTE | 2022-02-28 13:12 | XR ---
Right humerus HISTORY: C 59 Frontal lateral views of the right humerus on 3 images correlated to bone scan dated 02/22/2020 The area of abnormal uptake seen along the proximal right humerus on bone scan shows a questionable l ucency on plain film. Acromioclavicular joint arthropathy is present. No evident fracture or dislocat ion. IMPRESSION: Equivocal findings, consider MRI right shoulder for better evaluation
== END | disposition home or self-care (01) ==
LOC: RADXRMAIN 12:35
PROVIDERS: ATTEND Urology
DX: C61 Malignant neoplasm of prostate (principal)

== ENCOUNTER → 2022-03-03 | Outpatient (CLI) | payer MEDICARE ==
--- NOTE | 2022-03-04 04:45 | MR ---
EXAMINATION TYPE: MR lumbar spine wo/w con DATE OF EXAM: 03/03/2022 COMPARISON: None HISTORY: LBP, hx metastatic prostate cancer in lumbar spine, radiation treatment. CONTRAST: Standard multiplanar, multisequence MRI departmental protocol images were obtained without contrast a nd with 12 mL intravenous Gadavist gadolinium contrast. The lumbar vertebrae have normal alignment. There is narrowing of the disc spaces at L4-5 and L5-S1. The neural foramina are fairly well maintained. No compression fracture. There is a patchy mixed sign al pattern in the L1 vertebral body on the right side that measures 4 x 3 cm and extends into the rig ht-sided pedicle. This is consistent with metastatic disease. There is osteoblastic change in this ar ea on the PET/CT scan of 10/26/2018. No significant compression deformity. There is no paraspinal mass . No spinal stenosis. The sacroiliac joints are intact. There is no significant enhancement of the L1 vertebral body No spinal stenosis. IMPRESSION: Mixed signal lesion in the L1 vertebral body consistent with metastatic disease and also evident on t he PET/CT scan of 10/26/2018.
== END | disposition home or self-care (01) ==
LOC: RADMRIMAIN 14:11
PROVIDERS: ATTEND Urology
DX: C61 Malignant neoplasm of prostate (principal)
CPT/HCPCS: 72158; A9585